=== PATIENT | female | born 1990 | race Caucasian/White ===

== ENCOUNTER 2021-01-19 13:26 | Outpatient (CLI) | payer OTHER | END 2021-01-19 13:27 | disposition home or self-care (01) | LOC: DTY/OP 13:26 | PROVIDERS: ATTEND Surgery | DX: E66.01 Morbid (severe) obesity due to excess calories (principal) | CPT/HCPCS: 97802 ==

== ENCOUNTER 2021-02-15 10:04 | Outpatient (CLI) | payer SELFPAY ==
[2021-02-15 13:11] LABS: #Eosinphils 0.1 10x3/uL (0.0-0.5); #Monocytes 0.5 10x3/uL (0.0-1.1); #Neutrophils 5.2 10x3/uL (1.5-8.4); %Basophils 0.4 % (0.0-2.0); %Lymphocytes 24.4 % (18.0-47.0); %Monocytes 6.6 % (0.0-10.0); %Neutrophils 67.3 % (40.0-75.0); Hemoglobin 11.6 g/dL (12.0-15.5); Mean Corpuscular Hemoglobin 30.4 pg (27.0-33.0); Mean Corpuscular Volume 94.8 fl (81.6-98.3); Mean Platelet Volume 12.2 fl (7.4-10.4); Platelet Count 282 10x3/uL (150-450); RBC Distribution Width 13.7 % (11.5-14.5); Red Blood Cell (RBC) Count 3.82 10x6/uL (3.90-5.03); White Blood Cell (WBC) Count 7.8 10x3/uL (3.5-10.5)
[2021-02-15 13:32] LABS: BHCG - Serum Negative (NEGATIVE); Pregs Control Background? CLEAR/WHITE (CLR/WHITE); Pregs Control Bar Appear? YES (CONTROL BAR)
[2021-02-15 13:38] LABS: ALT (SGPT) 142 U/L (8-55); AST (SGOT) 85 U/L (5-34); Albumin 4.5 g/dL (3.5-5.0); Alkaline Phosphatase 149 U/L (40-110); Anion Gap 16 mmol/L (10-20); BUN (Urea Nitrogen) 16 mg/dL (7.0-18.7); Bilirubin, Total 0.9 mg/dL (0.2-1.2); Calc. Creatinine Clearance 0 mL/min (70-130); Calcium 9.6 mg/dL (7.8-10.44); Carbon Dioxide 25 mmol/L (22-29); Chloride 102 mmol/L (98-107); Globulin 2.5 g/dL (2.4-3.5); Glucose 77 mg/dL (70-105); Potassium 4.2 mmol/L (3.5-5.1); Sodium 139 mmol/L (136-145)
[2021-02-15 20:48] LABS: Hemoglobin A1c 4.5 % (4.0-6.0)
[2021-02-16 11:56] LABS: SARS-CoV-2 PCR by NAA Not Detected (NotDetected)
== END 2021-02-15 10:05 | disposition home or self-care (01) ==
LOC: LABBT 10:04
PROVIDERS: ATTEND Surgery
DX: Z01.818 Encounter for other preprocedural examination (principal); E66.01 Morbid (severe) obesity due to excess calories; Z20.822 Contact with and (suspected) exposure to COVID-19
CPT/HCPCS: 71046; 80053; 83036; 84703; 85025; 93005; 93010; U0003; U0005

== ENCOUNTER 2021-02-15 10:15 | Inpatient (IN) | payer OTHER ==
[2021-02-17 10:04] VITALS: BMI 41.6
[2021-02-20] MEDS ORDERED: ceFAZolin 2 GM/DEX 5% 100 ML BAG ONE (06:30)
[2021-02-20] MEDS ORDERED: Heparin 5,000 UNITS/ML VIAL ONE (06:30)
[2021-02-20] MEDS ORDERED: Fentanyl 100 MCG/2 ML VIAL ONE ×4 (06:33→09:46)
[2021-02-20] MEDS ORDERED: Lidocaine 1% w/Epinephrine 1:100K 20 ML VIAL ONE (06:41)
[2021-02-20] MEDS ORDERED: Bupivacaine 0.25% HCL 30 ML VIAL ONE (06:41)
[2021-02-20] MEDS ORDERED: ePHEDrine 50 MG/ML VIAL ONE (07:25)
[2021-02-20] MEDS ORDERED: PROPOFOL 200 MG/20 ML VIAL ONE (07:25)
[2021-02-20] MEDS ORDERED: Ondansetron PF 4 MG/2 ML Vial ONE (07:25)
[2021-02-20] MEDS ORDERED: Dexamethasone 20 MG/5 ML VIAL ONE (07:25)
[2021-02-20] MEDS ORDERED: Rocuronium Bromide 10 MG/ML (10ML VIAL) ONE (07:25)
[2021-02-20] MEDS ORDERED: PHENYLEPHRINE-NS 100 MCG/ML 10 ML SYRINGE ONE (07:25)
[2021-02-20] MEDS ORDERED: Glycopyrrolate 0.2 MG/ML 5 ML SYRINGE ONE (07:25)
[2021-02-20] MEDS ORDERED: Lidocaine 1% PF 5 ML VIAL ONE (07:25)
[2021-02-20] MEDS ORDERED: Hydrocodone-Acetamin 15 ML UDCUP PO PRN (08:33)
[2021-02-20] MEDS ORDERED: Dextrose 50% Abboject 50 ML SYRINGE SLOW IVP PRN (08:33)
[2021-02-20] MEDS ORDERED: Dextrose 5% in Water 1,000 ML IV PRN (08:33)
[2021-02-20] MEDS ORDERED: Ondansetron PF 4 MG/2 ML Vial IVP PRN (08:33)
[2021-02-20] MEDS ORDERED: diphenhydrAMINE 50 MG/ML VIAL IVP PRN ×2 (08:33→08:39)
[2021-02-20] MEDS ORDERED: hydrALAZINE 20 MG/ML VIAL SLOW IVP PRN (08:33)
[2021-02-20] MEDS ORDERED: Promethazine HCl 25 MG/ML VIAL IM PRN ×2 (08:33→08:39)
[2021-02-20] MEDS ORDERED: diphenhydrAMINE 50 MG/ML VIAL IM PRN (08:39)
[2021-02-20] MEDS ORDERED: Naloxone HCl 0.4 mg/ml Vial IV PRN (08:39)
[2021-02-20] MEDS ORDERED: fentaNYL Citrate/PF 2,000 MCG in Sodium Chloride 0.9% 60 ML IV PRN (08:39)
[2021-02-20] MEDS ORDERED: Zolpidem Tartrate 5 MG TAB PO PRN (08:39)
[2021-02-20] MEDS ORDERED: diphenhydrAMINE 25 MG CAP PO PRN (08:39)
[2021-02-20] MEDS ORDERED: Communication Order-Pharmacy FS SCH (08:45)
[2021-02-20] MEDS: Enoxaparin Sodium 40 MG/0.4 ML SYRINGE SC SCH (10:31)
[2021-02-20] MEDS: D5 1/2 NS w/20 mEq KCL 1,000 ML IV SCH ×3 (10:31→21:05)
[2021-02-20] MEDS ORDERED: Ketorolac Tromethamine 30 MG/ML VIAL IVP SCH (12:00)
[2021-02-20] MEDS: Ondansetron PF 4 MG/2 ML Vial IVP PRN ×2 (12:40→19:24)
[2021-02-20] MEDS ORDERED: Metoclopramide HCl 10 MG/2 ML VIAL IVP PRN (12:51)
[2021-02-20] MEDS ORDERED: Sodium Chloride 0.9% 500 ML IVPB SCH (13:00)
[2021-02-20] MEDS ORDERED: Ondansetron PF 4 MG/2 ML Vial IVP SCH (13:00)
[2021-02-20] MEDS ORDERED: ceFAZolin Sodium/D5W 2 GM in Premix Bag 1 BAG IVPB SCH ×2 (14:00→15:30)
[2021-02-20] MEDS ORDERED: CEFAZOLIN 2 GM in Premix Bag 1 BAG IVPB SCH (14:00)
[2021-02-20] MEDS: Pantoprazole 40 MG VIAL IVP SCH ×2 (14:39→15:09)
[2021-02-20] MEDS: CEFAZOLIN SODIUM IVPB SCH ×2 (16:33→23:42)
[2021-02-20] MEDS: ADMIXTURE FEE IVPB SCH ×2 (16:33→23:42)
[2021-02-20] MEDS: D5W IVPB SCH ×2 (16:33→23:42)
[2021-02-21] MEDS: D5 1/2 NS w/20 mEq KCL 1,000 ML IV SCH ×2 (04:45→08:22)
[2021-02-21 05:12] LABS: #Lymphocytes 2.1 thou/uL (1.20-3.40); #Monocytes 0.9 thou/uL (0.11-0.59); #Neutrophils 9.1 thou/uL (1.40-6.50); %Basophils 0.1 % (0.0-1.0); %Eosinophils 0.1 % (0.0-10.0); %Lymphocytes 17.4 % (21.0-51.0); %Monocytes 7.3 % (0.0-10.0); %Neutrophils 75.1 % (42.0-75.0); Hemoglobin 10.2 g/dL (12.0-16.0); Mean Corpuscular HGB CONC 34.4 g/dL (32.0-36.0); Mean Corpuscular Hemoglobin 32.6 pg (27.0-31.0); Mean Platelet Volume 9.4 fL (7.4-10.4); Platelet Count 226 thou/uL (130-400); RBC Distribution Width 13.1 % (11.5-14.5); Red Blood Cell (RBC) Count 3.13 mill/uL (4.20-5.40); White Blood Cell (WBC) Count 12.1 thou/uL (4.8-10.8)
[2021-02-21 05:25] LABS: Anion Gap 12 mmol/L (10-20); BUN (Urea Nitrogen) 5 mg/dL (7.0-18.7); Calc. Creatinine Clearance 243 mL/min (70-130); Calcium 8.8 mg/dL (7.8-10.44); Carbon Dioxide 25 mmol/L (22-29); Chloride 104 mmol/L (98-107); Glucose 120 mg/dL (70-105); Potassium 3.5 mmol/L (3.5-5.1); Sodium 137 mmol/L (136-145)
[2021-02-21] MEDS ORDERED: Hydrocodone-Acetamin 15 ML UDCUP PO PRN (08:09)
[2021-02-21] MEDS: Enoxaparin Sodium 40 MG/0.4 ML SYRINGE SC SCH (08:22)
[2021-02-21] MEDS: Ondansetron PF 4 MG/2 ML Vial IVP PRN (08:26)
[2021-02-21] MEDS: Pantoprazole 40 MG VIAL IVP SCH (11:03)
[2021-02-21 12:05] VITALS: BP 127/83; TEMP 97.8
== END 2021-02-21 13:02 | disposition home or self-care (01) | DRG 621 ==
LOC: EDSTATUS 10:15 → SURG A 02-20 06:16 → SURG B 02-20 10:15
PROVIDERS: ADMIT Surgery; ATTEND Surgery
PROC: 0DB64Z3 Excision of Stomach, Percutaneous Endoscopic Approach, Vertical (ICD-10-PCS; principal; 2021-02-20)
PROC: 0DJ08ZZ Inspection of Upper Intestinal Tract, Via Natural or Artificial Opening Endoscopic (ICD-10-PCS; 2021-02-20)
DX: E66.01 Morbid (severe) obesity due to excess calories (principal); Z20.822 Contact with and (suspected) exposure to COVID-19; E78.5 Hyperlipidemia, unspecified; F32.A Depression, unspecified; I10 Essential (primary) hypertension; K21.9 Gastro-esophageal reflux disease without esophagitis; G47.33 Obstructive sleep apnea (adult) (pediatric); Z68.41 Body mass index [BMI] 40.0-44.9, adult; Z79.899 Other long term (current) drug therapy
CPT/HCPCS: 36415; 80048; 85025; 88307; 88312; C9113; J1100; J1644; J1650; J2405; J2550; J2704; J2765; J3010; J3480; J3490; J7030; S0020